=== PATIENT | male | born 2000 | race Caucasian/White ===

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

== ENCOUNTER 2022-03-27 06:49 | Emergency (ER) | payer MEDICAID ==
[~2022-03-27] VITALS: Ht 180.3 cm; Wt 113.4 kg
[2022-03-27 07:01] VITALS: BP_SYST 102
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
--- NOTE | 2022-03-27 07:50 | NUR ---
Patient to ER bed 02 to gown for evaluation. Side rails up.
--- NOTE | 2022-03-27 07:55 | NUR ---
ER Dr. Abbott at bedside examining patient.
[2022-03-27 08:08] VITALS: BP_SYST 104
--- NOTE | 2022-03-27 08:10 | NUR ---
Patient given written and verbal discharge instructions and verbalizes understanding. ER Dr. Scar POWELL discussed with patient the results and treatment provided. Patient in stable condition. ID arm band removed. Patient educated on pain management and to follow up with PMD. Pain Scale 0/10. Opportunity for questions provided and answered. Medication side effect fact sheet provided.
== END 2022-03-27 08:08 | disposition home or self-care (01) ==
LOC: SED 06:49
DX: Z48.00 Encounter for change or removal of nonsurgical wound dressing (principal); J45.909 Unspecified asthma, uncomplicated; Z79.899 Other long term (current) drug therapy
CPT/HCPCS: 99281

== ENCOUNTER 2022-04-22 20:11 | Emergency (ER) | payer MEDICAID ==
[~2022-04-22] VITALS: Ht 180.3 cm; Wt 113.4 kg
[2022-04-22 21:24] VITALS: BP_SYST 124
--- NOTE | 2022-04-22 21:31 | NUR ---
Patient triaged and placed in waiting room. VS checked and patient appears in no acute distress at this time. Accompanied by brother, awaiting available bed, and MD notified of need for MSE.
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
[2022-04-22] MEDS ORDERED: PENICILLIN V POTASSIUM 250 MG TABLET PO ONE (23:30)
[2022-04-22] MEDS ORDERED: IBUPROFEN 600 MG TABLET PO ONE (23:30)
[2022-04-22] MEDS ORDERED: HYDROcodone/ACETAMIN 5-325 MG TAB (NORCO/ VICODIN) PO ONE (23:30)
--- NOTE | 2022-04-23 00:12 | NUR ---
Patient ambulatory to bed 2 for evaluatiopn and treatment
--- NOTE | 2022-04-23 01:09 | NUR ---
ER Dragan Dai at bedside examining patient.
--- NOTE | 2022-04-23 01:12 | NUR ---
ER Dragan Dai at bedside performing procedure, MD STITCHING UP PATIENT
[2022-04-23] MEDS ORDERED: ACET12.55 PO (01:25)
[2022-04-23] MEDS ORDERED: PENI250T2 PO (01:25)
--- NOTE | 2022-04-23 03:30 | NUR ---
PATIENT D/C HOME WITH FAMILY, PATIENT AMBULATED OUT OF UNIT , V/S STABLE
[2022-04-23] MEDS ORDERED: IBUPROFEN 600 MG TABLET ONE (03:57)
[2022-04-23 04:00] VITALS: BP_SYST 122
[2022-04-23] MEDS ORDERED: HYDROcodone/ACETAMIN 5-325 MG TAB (NORCO/ VICODIN) ONE (04:00)
--- NOTE | 2022-04-23 04:00 | NUR ---
Patient given written and verbal discharge instructions and verbalizes understanding. ER MD discussed with patient the results and treatment provided. Patient in stable condition. Rx of Penicillin and TYlenol with codeine liquid given. Patient educated on pain management and to follow up with PMD. Pain Scale 2/10 Opportunity for questions provided and answered.
== END 2022-04-23 04:00 | disposition home or self-care (01) ==
LOC: SED 20:11
DX: S01.511A Laceration without foreign body of lip, initial encounter (principal); J45.909 Unspecified asthma, uncomplicated; Z79.899 Other long term (current) drug therapy; Y04.8XXA Assault by other bodily force, initial encounter; Y93.89 Activity, other specified; Y92.89 Other specified places as the place of occurrence of the external cause; Y99.8 Other external cause status
CPT/HCPCS: 99282